=== PATIENT | female | born 1940 | race Caucasian/White ===

== ENCOUNTER → 2017-02-11 | Outpatient (CLI) | payer OTHER, MEDICARE ==
--- NOTE | 2017-02-11 15:19 | MAMMOGRAPHY REPORT ---
BILATERAL DIGITAL SCREENING MAMMOGRAM WITH CAD: 02/11/2017 CLINICAL HISTORY: Routine screening. Patient has no complaints. TECHNIQUE: Current study was also evaluated with a Computer Aided Detection (CAD) system. Bilatera l CC and MLO views were obtained. COMPARISON: Comparison is made to exams dated: 02/11/2016 mammogram, 02/06/2015 mammogram, 01/16/2014 m ammogram, 01/15/2013 mammogram, 01/12/2012 mammogram, and 01/06/2011 mammogram - [facility] enter. BREAST COMPOSITION: There are scattered areas of fibroglandular density in both breasts. FINDINGS: No suspicious masses, calcifications, or areas of architectural distortion are noted in e ither breast. There has been no significant interval change compared to prior exams. Scattered bilat eral benign-appearing calcifications are not significantly changed. IMPRESSION: ACR BI-RADS CATEGORY 2: BENIGN There is no mammographic evidence of malignancy. A 1 year screening mammogram is recommended. The p atient will receive written notification of the results. Approximately 10% of breast cancers are not detected with mammography. A negative mammographic repor t should not delay biopsy if a clinically suggestive mass is present. Coreen Ball M.D. /:02/11/2017 12:37:27 Cheesemaker Helper: Ayah BARAJAS)(Jenna), [facility] letter sent: Normal 1/2 BI-RADS Code: ACR BI-RADS Category 2: Benign
== END | disposition home or self-care (01) ==
LOC: C.MAMM 10:15
PROVIDERS: ATTEND Family Medicine
DX: Z12.31 Encounter for screening mammogram for malignant neoplasm of breast (principal)

== ENCOUNTER → 2018-02-17 | Outpatient (CLI) | payer OTHER, MEDICARE ==
--- NOTE | 2018-02-20 08:09 | MAMMOGRAPHY REPORT ---
BILATERAL DIGITAL SCREENING MAMMOGRAM TOMOSYNTHESIS WITH CAD: 02/17/2018 CLINICAL HISTORY: Routine screening. Patient has no complaints. TECHNIQUE: Breast tomosynthesis in addition to standard 2D mammography was performed. Current study was also evaluated with a Computer Aided Detection (CAD) system. COMPARISON: Comparison is made to exams dated: 02/11/2017 mammogram, 02/11/2016 mammogram, 02/06/2015 ma mmogram, 01/16/2014 mammogram, 01/15/2013 mammogram, and 01/12/2012 mammogram - [facility] nter. BREAST COMPOSITION: There are scattered areas of fibroglandular density in both breasts. FINDINGS: No suspicious masses, calcifications, or areas of architectural distortion are noted in ei ther breast. There has been no significant interval change compared to prior exams. Scattered bilater al benign-appearing calcifications are not significantly changed. IMPRESSION: ACR BI-RADS CATEGORY 2: BENIGN There is no mammographic evidence of malignancy. A 1 year screening mammogram is recommended. The pa tient will receive written notification of the results. Approximately 10% of breast cancers are not detected with mammography. A negative mammographic report should not delay biopsy if a clinically suggestive mass is present. Coreen Ball M.D. /:02/17/2018 15:32:02 Burnt Lime Drawer: Jennifer BARAJAS)(M), [facility] letter sent: Normal 1/2 BI-RADS Code: ACR BI-RADS Category 2: Benign
== END ==
LOC: C.MAMM 14:43
PROVIDERS: ATTEND Family Medicine
DX: Z12.31 Encounter for screening mammogram for malignant neoplasm of breast (principal)

== ENCOUNTER 2023-04-08 19:21 | Inpatient (IN) ==
[2023-04-08] MEDS ORDERED: SODIUM CHLORIDE 0.9% 500 ML IV SCH (19:45)
--- NOTE | 2023-04-08 19:45 | Emergency Department Note ---
Impression & Plan Anaplasmosis, Weakness, Elevated troponin I level ED Provider Note Provider: Daniel Carrillo MD DATE OF SERVICE: 04/08/2023 CHIEF COMPLAINT: Weakness, decreased intake HISTORY OF PRESENT ILLNESS: Patient is a 82-year-old female history of essential tremor, CKD, dyslipidemia presenting here via ambulance from home today reporting over the past 2 weeks been generally ill. [id number] and later arrived with additional history. Patient normally quite independent and ambulatory. 2 weeks ago became ill and very weak and fatigued and sleeping quite a bit. Not getting up and walking well and has slid to the ground several times. Denies significant head trauma or injury from these 2 events. Denies significant pain at this time or abdominal upset. States she is just not very hungry. States her essential tremor seems a bit worse. No fevers reported although she reports some slight cough. Denies significant leg swelling or other recent sick contacts. PAST MEDICAL HISTORY: As noted above MEDICATIONS: Reviewed home medication list and she states she has been taking these SOCIAL HISTORY: Lives at home with PHYSICAL EXAM: GENERAL: alert and oriented in no acute distress on stretcher some resting tremor appreciated Head: normocephalic and atraumatic EYES: No injection, discharge or icterus. PERRL, EOMI. NECK: Trachea midline. ENT: Mucous membranes pink and moist. LUNGS: Airway patent. No retractions. Breath sounds clear HEART: Regular rate and rhythm. No chest wall tenderness ABDOMEN: Soft and non-tender, without guarding or rebound. SKIN: Acyanotic, warm, dry, without rashes EXTREMITIES: Without swelling, tenderness or deformity NEUROLOGICAL: No focal deficits moving all extremities to command but with some essential tremor noted. No aphasia. No facial droop or slurred speech. EK bpm normal sinus rhythm. No PVC or PAC. No acute ST segment elevation or depression with a QTc of 470. Nonspecific anterior lateral T wave changes. CONTINUOUS CARDIAC MONITORING: was ordered and showed a heart rate of 60s-70s bpm in normal sinus rhythm 1 view chest x-ray per my interpretation: No evidence of pneumonia pneumothorax or pulmonary edema. No free air under the diaphragm. Patient's laboratory studies and imaging reviewed. Differential includes Infection, dehydration, metabolic abnormality, hypo/hyperglycemia, electrolyte disturbance, anemia, hypoxia, cardiac sources, neurologic, as well as other pathologies. IMPRESSION/MEDICAL DECISION MAKING: Patient with generalized weakness and decreased appetite over the past 2 weeks. Several slides to the ground but no significant trauma. We will complete a head CT but doubt other significant trauma no believe any other imaging at this time. Basic blood work ordered. COVID test ordered. X-ray ordered as she reports a slight cough but unclear exact etiology of her weakness at this time. Chest x- ray is unremarkable. Decreased appetite is a bit of concern and given some IV fluid hydration here. Here with some slight hypokalemia 3.3. Normal sodium. Creatinine 1.44 with unclear baseline with a known history of CKD 3A may be slightly dehydrated. Given some fluid hydration here. Bilirubin normal. AST and ALT minimally elevated. Troponin is mildly elevated at 38.4 without a clear prior baseline will need monitored and trended but not having active chest pain and no STEMI on EKG. Procalcitonin not significantly elevated normal TSH here. CT of the head. Per radiology is unremarkable for acute abnormality with chronic small vessel changes. Slight leukopenia as well as a slight transaminitis with anaplasmosis smear positive seems consistent with anaplasmosis as primary p d driver of her symptoms. Given doxycycline here for treatment. They do report a history of tick bites earlier this year. Given her weakness and fatigue will require further care here and discussed with the hospitalist. Patient and family updated at bedside. UA questionable. DIAGNOSIS: Anaplasmosis, weakness, elevated troponin DISPOSITION: Hospitalist will evaluate Patient was agreeable with this plan. Past Med/Surg History Social History Smoking Status: Never smoker Second Hand Exposure: No; Do You Dip or Chew Tobacco: No; Hx Alcohol Use: No Hx Substance Use: No Preferred Language: Greek Communication Ability: Effective Assembler Utility Buildings Required: No Beliefs That Will Affect Care: None Current Living Situation: Spouse Current Living Situation Comment: Lives with Other Information That Helps Us Care for You: No Feels Safe at Home: Yes Safety Concerns: Feels Safe At This Time Assistive Devices: Denture - Upper and Glasses Allergies Allergies Allergy/AdvReac Type Severity Reaction Status Date / Time No Known Allergies Allergy Verified 04/08/23 22:37 Home Meds Home Medications Medication Instructions Recorded Confirmed Fish Oil 1,000 mg PO DAILY 04/08/23 04/09/23 PreserVision AREDS-2 PO DAILY 04/08/23 Vitamin D3 25 mcg PO DAILY 04/08/23 04/09/23 atorvastatin 20 mg tablet 20 mg PO DAILY 04/08/23 04/09/23 diazepam 5 mg tablet 5 mg PO TID PRN Tremor(S) 04/08/23 04/09/23 hydrochlorothiazide 25 mg tablet 25 mg PO DAILY 04/08/23 04/09/23 multivitamin 1 tab PO DAILY 04/08/23 04/09/23 nifedipine 90 mg tablet,extended 90 mg PO DAILY 04/08/23 04/09/23 release 24 hr propranolol 120 mg capsule,24 120 mg PO DAILY 04/08/23 04/09/23 hr,extended release aspirin 81 mg capsule,delayed 81 mg PO DAILY 04/09/23 04/09/23 release Results & Data (ED) Vital Signs Vital Signs - 24 hr 04/08/23 19:33 04/08/23 19:37 04/08/23 19:39 Temperature 36.9 C Temperature Source Oral Pulse Rate 71 69 Pulse Rate [Apical] Pulse Rate from SpO2 Sensor Pulse Rhythm Regular Pulse Strength Normal Respiratory Rate 20 Respiratory Effort / Characteristics Non-Labored Spontaneous Respiratory Depth Normal Respiratory Pattern Regular Blood Pressure 109/63 Blood Pressure [Right Arm] Blood Pressure Mean 78 Blood Pressure Mean [Right Arm] Blood Pressure Position Sitting Pulse Oximetry 91 Oxygen Delivery Method Room Air Room Air Sepsis Recent Fever Within 48 Hours No Sepsis New/Unexplained Change in Mental Status N/A Sepsis Action Taken by Nursing No Action Required 04/08/23 19:54 04/08/23 20:24 04/08/23 21:05 Temperature Temperature Source Pulse Rate 68 Pulse Rate [Apical] 68 69 Pulse Rate from SpO2 Sensor Pulse Rhythm Pulse Strength Respiratory Rate 19 19 Respiratory Effort / Characteristics Respiratory Depth Respiratory Pattern Blood Pressure Blood Pressure [Right Arm] 109/63 105/59 L Blood Pressure Mean Blood Pressure Mean [Right Arm] 78 74 Blood Pressure Position Pulse Oximetry 93 95 94 Oxygen Delivery Method Room Air Room Air Room Air Sepsis Recent Fever Within 48 Hours Sepsis New/Unexplained Change in Mental Status Sepsis Action Taken by Nursing 04/08/23 20:30 04/08/23 22:10 04/08/23 23:00 Temperature Temperature Source Pulse Rate 67 155 H 93 H Pulse Rate [Apical] Pulse Rate from SpO2 Sensor 134 H 67 Pulse Rhythm Pulse Strength Respiratory Rate 17 22 29 H Respiratory Effort / Characteristics Respiratory Depth Respiratory Pattern Blood Pressure 115/68 104/57 L 129/63 Blood Pressure [Right Arm] Blood Pressure Mean 83 72 85 Blood Pressure Mean [Right Arm] Blood Pressure Position Pulse Oximetry 90 93 Oxygen Delivery Method Sepsis Recent Fever Within 48 Hours Sepsis New/Unexplained Change in Mental Status Sepsis Action Taken by Nursing Laboratory Data 04/08/23 19:28 Lab Results 04/08/23 04/08/23 04/08/23 Range/Units 19:28 19:28 19:28 WBC 3.74 L (4.8-10.8) K/ul RBC 4.37 (4.20-5.40) M/uL Hgb 12.9 (12.0-16.0) g/dl Hct 36.9 L (37.0-47.0) % MCV 84.4 (80.0-100.0) fL MCH 29.5 (25.0-34.0) pg MCHC 35.0 (32.0-36.0) g/dL RDW Std Deviation 44.1 (36.4-46.3) fL RDW Coeff of Chad 14.2 (11.5-14.5) % Plt Count 120 L (130-400) K/uL MPV 14.4 H (9.4-12.4) fL Immature Gran % (Auto) 0.5 % Neut % (Auto) 62.3 % Lymph % (Auto) 32.9 % [place] % (Auto) 3.5 % Eos % (Auto) 0.0 % Baso % (Auto) 0.8 % Neut # (Auto) 2.33 (1.40-6.50) K/uL Lymph # (Auto) 1.23 (1.2-3.4) K/uL [place] # (Auto) 0.13 (0.11-0.59) K/uL Eos # (Auto) 0.00 (0-0.50) K/uL Baso # (Auto) 0.03 (0-0.2) K/uL Immature Gran # (Auto) 0.02 (0.01-0.20) K/uL Sodium (136-145) mmol/L Potassium (3.5-5.1) mmol/L Chloride (98-107) mmol/L Carbon Dioxide (21-32) mmol/L Anion Gap (3-11) BUN (6-23) mg/dl Creatinine (0.6-1.2) mg/dl Est Cr Clr Drug Dosing ml/min Est GFR ( Amer) ml/min Est GFR (Non-Af Amer) ml/min BUN/Creatinine Ratio (10-20) Glucose (70-99(Fasting)) mg/dl Lactate (0.4-2.0) mmol/L Calcium (8.6-10.3) mg/dl Magnesium (1.7-2.4) mg/dl Total Bilirubin (0.2-1.0) mg/dl AST (13-39) U/L ALT (7-52) U/L Alkaline Phosphatase (34-104) U/L Total Creatine Kinase (26-192) U/L Troponin I High Sens (0-14) pg/ml Total Protein (6.0-8.3) gm/dl Albumin (3.4-5.0) gm/dl Globulin (2.5-4.0) gm/dl Albumin/Globulin Ratio (0.9-2) Procalcitonin 0.40 (0-0.5) ng/ml TSH 0.852 (0.300-4.500) uIu/ml Urine Color Urine Appearance (Clear) Urine pH (4.5-7.5) Ur Specific [place] (1.000-1.030) Urine Protein (Negative) Urine Glucose (UA) (Negative) Urine Ketones (Negative) Urine Blood (Negative) Urine Nitrite (Negative) Urine Bilirubin (Negative) Urine Urobilinogen (Negative) Ur Leukocyte Esterase (Negative) Urine WBC (Auto) (0-5) /hpf Urine RBC (Auto) (0-4) /hpf U Hyaline Cast (Auto) (0-5) /lpf U Epithel Cells (Auto) (0-5) /lpf Urine Bacteria (Auto) (Negative) Ur Renal Epithelial Cell (0-5) /lpf WBC Casts (0) /lpf Urine Mucus (None Prsent) Anaplasma Smear See Comment A SARS-CoV-2, RNA, NAAT (NEGATIVE) 04/08/23 04/08/23 04/08/23 Range/Units 20:22 20:22 21:10 WBC (4.8-10.8) K/ul RBC (4.20-5.40) M/uL Hgb (12.0-16.0) g/dl Hct (37.0-47.0) % MCV (80.0-100.0) fL MCH (25.0-34.0) pg MCHC (32.0-36.0) g/dL RDW Std Deviation (36.4-46.3) fL RDW Coeff of Chad (11.5-14.5) % Plt Count (130-400) K/uL MPV (9.4-12.4) fL Immature Gran % (Auto) % Neut % (Auto) % Lymph % (Auto) % [place] % (Auto) % Eos % (Auto) % Baso % (Auto) % Neut # (Auto) (1.40-6.50) K/uL Lymph # (Auto) (1.2-3.4) K/uL [place] # (Auto) (0.11-0.59) K/uL Eos # (Auto) (0-0.50) K/uL Baso # (Auto) (0-0.2) K/uL Immature Gran # (Auto) (0.01-0.20) K/uL Sodium 137 (136-145) mmol/L Potassium 3.3 L (3.5-5.1) mmol/L Chloride 98 (98-107) mmol/L Carbon Dioxide 31 (21-32) mmol/L Anion Gap 8 (3-11) BUN 35 H (6-23) mg/dl Creatinine 1.44 H (0.6-1.2) mg/dl Est Cr Clr Drug Dosing 29.3 ml/min Est GFR ( Amer) 38.6 ml/min Est GFR (Non-Af Amer) 33.3 ml/min BUN/Creatinine Ratio 24.3 H (10-20) Glucose 107 H (70-99(Fasting)) mg/dl Lactate 1.4 (0.4-2.0) mmol/L Calcium 8.8 (8.6-10.3) mg/dl Magnesium 2.3 (1.7-2.4) mg/dl Total Bilirubin 0.8 (0.2-1.0) mg/dl AST 66 H (13-39) U/L ALT 53 H (7-52) U/L Alkaline Phosphatase 96 (34-104) U/L Total Creatine Kinase 101 (26-192) U/L Troponin I High Sens 38.4 H (0-14) pg/ml Total Protein 7.0 (6.0-8.3) gm/dl Albumin 3.0 L (3.4-5.0) gm/dl Globulin 4.0 (2.5-4.0) gm/dl Albumin/Globulin Ratio 0.8 L (0.9-2) Procalcitonin (0-0.5) ng/ml TSH (0.300-4.500) uIu/ml Urine Color Urine Appearance (Clear) Urine pH (4.5-7.5) Ur Specific [place] (1.000-1.030) Urine Protein (Negative) Urine Glucose (UA) (Negative) Urine Ketones (Negative) Urine Blood (Negative) Urine Nitrite (Negative) Urine Bilirubin (Negative) Urine Urobilinogen (Negative) Ur Leukocyte Esterase (Negative) Urine WBC (Auto) (0-5) /hpf Urine RBC (Auto) (0-4) /hpf U Hyaline Cast (Auto) (0-5) /lpf U Epithel Cells (Auto) (0-5) /lpf Urine Bacteria (Auto) (Negative) Ur Renal Epithelial Cell (0-5) /lpf WBC Casts (0) /lpf Urine Mucus (None Prsent) Anaplasma Smear SARS-CoV-2, RNA, NAAT NEGATIVE (NEGATIVE) 04/08/23 Range/Units 22:04 WBC (4.8-10.8) K/ul RBC (4.20-5.40) M/uL Hgb (12.0-16.0) g/dl Hct (37.0-47.0) % MCV (80.0-100.0) fL MCH (25.0-34.0) pg MCHC (32.0-36.0) g/dL RDW Std Deviation (36.4-46.3) fL RDW Coeff of Chad (11.5-14.5) % Plt Count (130-400) K/uL MPV (9.4-12.4) fL Immature Gran % (Auto) % Neut % (Auto) % Lymph % (Auto) % [place] % (Auto) % Eos % (Auto) % Baso % (Auto) % Neut # (Auto) (1.40-6.50) K/uL Lymph # (Auto) (1.2-3.4) K/uL [place] # (Auto) (0.11-0.59) K/uL Eos # (Auto) (0-0.50) K/uL Baso # (Auto) (0-0.2) K/uL Immature Gran # (Auto) (0.01-0.20) K/uL Sodium (136-145) mmol/L Potassium (3.5-5.1) mmol/L Chloride (98-107) mmol/L Carbon Dioxide (21-32) mmol/L Anion Gap (3-11) BUN (6-23) mg/dl Creatinine (0.6-1.2) mg/dl Est Cr Clr Drug Dosing ml/min Est GFR ( Amer) ml/min Est GFR (Non-Af Amer) ml/min BUN/Creatinine Ratio (10-20) Glucose (70-99(Fasting)) mg/dl Lactate (0.4-2.0) mmol/L Calcium (8.6-10.3) mg/dl Magnesium (1.7-2.4) mg/dl Total Bilirubin (0.2-1.0) mg/dl AST (13-39) U/L ALT (7-52) U/L Alkaline Phosphatase (34-104) U/L Total Creatine Kinase (26-192) U/L Troponin I High Sens (0-14) pg/ml Total Protein (6.0-8.3) gm/dl Albumin (3.4-5.0) gm/dl Globulin (2.5-4.0) gm/dl Albumin/Globulin Ratio (0.9-2) Procalcitonin (0-0.5) ng/ml TSH (0.300-4.500) uIu/ml Urine Color Dark Yellow Urine Appearance Cloudy A (Clear) Urine pH 6.0 (4.5-7.5) Ur Specific [place] 1.019 (1.000-1.030) Urine Protein 1+ H (Negative) Urine Glucose (UA) Negative (Negative) Urine Ketones Negative (Negative) Urine Blood Negative (Negative) Urine Nitrite Negative (Negative) Urine Bilirubin Negative (Negative) Urine Urobilinogen Negative (Negative) Ur Leukocyte Esterase 1+ H (Negative) Urine WBC (Auto) 10-30 H (0-5) /hpf Urine RBC (Auto) 5-10 H (0-4) /hpf U Hyaline Cast (Auto) 10-30 H (0-5) /lpf U Epithel Cells (Auto) >30 H (0-5) /lpf Urine Bacteria (Auto) Negative (Negative) Ur Renal Epithelial Cell 0-5 (0-5) /lpf WBC Casts 1-5 H (0) /lpf Urine Mucus Present A (None Prsent) Anaplasma Smear SARS-CoV-2, RNA, NAAT (NEGATIVE) Administered Medications Diazepam (Diazepam 5 Mg Tablet) 5 mg PO TID PRN PRN Reason: Tremor(S) Stop: 05/09/23 11:04 Last Admin: 04/09/23 12:25 Dose: 5 mg Documented By: ISABEL Heparin Sodium (Porcine) (Heparin Sod 5,000 Unit/0.5 Ml Vial) 5,000 units SQ Q12 BEKAH Stop: 05/09/23 08:59 Last Admin: 04/09/23 12:15 Dose: 5,000 units Documented By: ISABEL Doxycycline Hyclate 100 mg/ (Dextrose) 110 mls @ 50 mls/hr IV Q12H BEKAH Stop: 04/23/23 00:59 Last Admin: 04/09/23 12:25 Dose: 50 mls/hr Documented By: Infusion: 04/09/23 03:13 Dose: 0 mls/hr Documented By: Admin: 04/09/23 01:01 Dose: 50 mls/hr Documented By: ANGI Dextrose/Sodium Chloride (D5w And Nss) 1,000 mls @ 100 mls/hr IV .Q10H BEKAH Stop: 05/09/23 00:40 Last Admin: 04/09/23 12:15 Dose: 100 mls/hr Documented By: Infusion: 04/09/23 11:01 Dose: 100 mls/hr Documented By: Admin: 04/09/23 01:01 Dose: 100 mls/hr Documented By: ANGI Propranolol HCl (Propranolol Hcl 60 Mg [place]) 120 mg PO QAM BEKAH Stop: 05/09/23 09:29 Last Admin: 04/09/23 12:15 Dose: 120 mg Documented By: ISABEL Discontinued Medications Doxycycline Hyclate (Doxycycline Hyclate 100 Mg Cap) 100 mg PO NOW STA Stop: 04/08/23 22:20 Last Admin: 04/08/23 23:50 Dose: Not Given Documented By: BS Sodium Chloride (Nss) 500 mls @ 999 mls/hr IV .Q31M BEKAH Stop: 04/08/23 20:15 Last Infusion: 04/08/23 20:29 Dose: 0 mls/hr Documented By: Admin: 04/08/23 19:57 Dose: 999 mls/hr Documented By: Lactated Ringer's (Lr) 500 mls @ 999 mls/hr IV .Q31M ONE Stop: 04/08/23 22:14 Last Infusion: 04/08/23 23:18 Dose: 0 mls/hr Documented By: Admin: 04/08/23 22:43 Dose: 999 mls/hr Documented By: Ceftriaxone Sodium (Rocephin) 2,000 mg in 70 mls @ 140 mls/hr IV NOW STA Stop: 04/08/23 23:39 Last Infusion: 04/09/23 00:22 Dose: 0 mls/hr Documented By: Admin: 04/08/23 23:50 Dose: 140 mls/hr Documented By: NASIM Potassium Chloride (K Julien / Wtr) 10 meq in 100 mls @ 100 mls/hr IV Q1H BEKAH Stop: 04/09/23 02:44 Last Infusion: 04/09/23 03:27 Dose: 0 mls/hr Documented By: Admin: 04/09/23 02:21 Dose: 100 mls/hr Documented By: Infusion: 04/09/23 02:01 Dose: 100 mls/hr Documented By: Admin: 04/09/23 01:01 Dose: 100 mls/hr Documented By: ANGI Imaging Data Radiologist's Impression: Chest X-Ray 04/08/23 19:42 XR chest 1V portable CLINICAL HISTORY: weakness COMPARISON STUDY: No previous studies for comparison. FINDINGS: Lung volumes are at the lower limits of normal. Lungs are clear. There is no pneumothorax or pleural effusion. Cardiac size is normal. Mediastinal contours are normal. There is no evidence for pulmonary edema. IMPRESSION: No acute cardiopulmonary findings. ACT 112: Negative or not required by law. Electronically signed by: Dashawn Milligan M.D. 04/09/2023 8:08 AM Discharge Plan Visit Data Chief Complaint: Weakness Stated Complaint: WEAKNESS X2 WEEKS ED Provider: Daniel Carrillo Discharge Problem: Anaplasmosis, Weakness, Elevated troponin I level Patient Disposition: Admitted As Inpatient Discharge Instructions Interventions: ED Discharge Assessment Last Done: 04/09/23 00:13
[2023-04-08 20:57] LABS: Albumin Globulin Ratio 0.8 (0.9-2); BUN Creatinine Ratio 24.3 (10-20); Bilirubin,Total 0.8 mg/dl (0.2-1.0); Calcium 8.8 mg/dl (8.6-10.3); Creatinine Clr Calc Pharmacy 29.3 ml/min; Est GFR (African American) 38.6 ml/min; Est GFR (Non-African American) 33.3 ml/min; Magnesium 2.3 mg/dl (1.7-2.4); Potassium 3.3 mmol/L (3.5-5.1)
[2023-04-08 21:03] LABS: Troponin I High Sensitivity 38.4 pg/ml (0-14)
--- NOTE | 2023-04-08 21:20 | CT Scan Report ---
Exam(s): CT HEAD Without Contrast EXAM: CT Head Without Intravenous Contrast CLINICAL HISTORY: Reason for exam: fall. TECHNIQUE: Axial computed tomography images of the head/brain without intravenous contrast. CTDI is 36.55 mGy and DLP is 547.75 mGy-cm. Automated exposure control was utilized for the study. A dose lowering technique was utilized adhering to the principles of ALARA. COMPARISON: None FINDINGS: Brain: No acute infarct or hemorrhage identified. No extra-axial fluid collection. No mass effect or midline shift. Scattered areas of hypoattenuation in the supratentorial white matter likely represent chronic small vessel ischemic changes. 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 Ventricles and sulci: Prominence of the ventricles and sulci is likely secondary to cerebral volume loss. Bones: Normal. No bony lesion or acute fracture. Subcutaneous tissues: Normal. Sinuses: Small polyp versus mucous retention cyst in the right maxillary sinus. Mild mucosal thickening in the ethmoid air cells. Mastoid air cells: Normal. Orbits: Bilateral lens implants. Other: Atherosclerotic calcifications in the intracranial vasculature. IMPRESSION: 1. No acute intracranial abnormality. 2. Chronic small vessel ischemic changes and cerebral volume loss. Electronically signed by: Aryan Vidal M.D. 04/08/23 21:20 PM
[2023-04-08] MEDS ORDERED: LACTATED RINGER'S 500 ML IV ONE (21:44)
[2023-04-08 22:19] LABS: Hematocrit (blood only) 36.9 % (37.0-47.0); Hemoglobin 12.9 g/dl (12.0-16.0); Mean Corpuscular Hemoglobin 29.5 pg (25.0-34.0); Mean Corpuscular Volume 84.4 fL (80.0-100.0); Mean Platelet Volume 14.4 fL (9.4-12.4); Platelet Count 120 K/uL (130-400); RDW Coefficient of Variation 14.2 % (11.5-14.5); RDW Standard Deviation 44.1 fL (36.4-46.3); Red Blood Count 4.37 M/uL (4.20-5.40); White Blood Count 3.74 K/ul (4.8-10.8)
[2023-04-08] MEDS ORDERED: DOXYCYCLINE HYCLATE 100 MG CAP PO STA (22:19)
[2023-04-08 22:21] LABS: Basophils # (auto) 0.03 K/uL (0-0.2); Basophils % (auto) 0.8 %; Immature Granulocytes # (auto) 0.02 K/uL (0.01-0.20); Immature Granulocytes % (auto) 0.5 %; Lymphocytes # (auto) 1.23 K/uL (1.2-3.4); Lymphocytes % (auto) 32.9 %; Monocytes # (auto) 0.13 K/uL (0.11-0.59); Monocytes % (auto) 3.5 %; Neutrophils # (auto) 2.33 K/uL (1.40-6.50); Neutrophils % (auto) 62.3 %
[2023-04-08 22:28] LABS: Appearance Urine Cloudy (Clear); Bacteria Urine Automated Negative (Negative); Bilirubin Urine Negative (Negative); Blood Urine Negative (Negative); Color Urine Dark Yellow; Epithelial Cell Urine Auto >30 /lpf (0-5); Glucose Urine UA Negative (Negative); Ketones Urine Negative (Negative); Leukocyte Esterase Urine 1+ (Negative); Nitrite Urine Negative (Negative); Protein Urine 1+ (Negative); Specific Gravity Urine 1.019 (1.000-1.030); Urobilinogen Urine Negative (Negative)
[2023-04-08 22:50] LABS: Mucus Urine Present (None Prsent); Renal Epithelial Cells Urine 0-5 /lpf (0-5)
[2023-04-08] MEDS ORDERED: cefTRIAXone SODIUM 2,000 MG/70 ML BAG IV STA (23:10)
[2023-04-09] MEDS ORDERED: ONDANSETRON INJ 2 MG/ML 2 ML VIAL IV PRN (00:41)
[2023-04-09] MEDS ORDERED: hydrALAZINE HCL 20 MG/ML VIAL IV PRN (00:41)
[2023-04-09] MEDS ORDERED: NITROGLYCERIN SL 0.4 MG/TAB TAB SL PRN (00:41)
[2023-04-09] MEDS: POTASSIUM CHLORIDE / WTR 10 MEQ/100 ML PLCT IV SCH ×2 (01:01→02:21)
[2023-04-09] MEDS: DOXYCYCLINE HYCLATE 100 MG in DEXTROSE 5% 100 ML IV SCH ×2 (01:01→12:25)
[2023-04-09] MEDS: D5W AND NSS 1,000 ML IV SCH ×2 (01:01→12:15)
--- NOTE | 2023-04-09 01:19 | History and Physical Report ---
DATE OF ADMISSION: 04/08/2023. CHIEF COMPLAINT: Weakness. HISTORY OF PRESENT ILLNESS: This is an 82-year-old female with past medical history significant for hypertension, hyperlipidemia, chronic kidney disease stage III, essential tremor, presents with weakness. The patient has very bad tremors. She has difficulty speaking with her tremors. Today she says she was feeling weak slid down from the chair and she was having also shaking chills, the reason she came to the ER. She says she had a tick bite more than 2 weeks ago and anaplasmosis screen came back positive. The patient denies any fevers. No cough. The patient says she can eat okay, but looks like she was not able to swallow comfortably water in the ER. Denies any headache. Vision is okay. No runny nose, no chest pain, no shortness of breath, no nausea, no abdominal pain. Normal bowel and bladder movements. She says she ambulates okay at home Currently, hemodynamics are okay. ALLERGIES: No known drug allergies. PAST MEDICAL HISTORY: As mentioned above. PAST SURGICAL HISTORY: Colonoscopy, dilatation and curettage, hysteroscopy with biopsy and polypectomy, internal fixation of right ankle fracture, cataract surgeries. MEDICATIONS: As per [facility], the patient is on hydrochlorothiazide 25 mg p.o. daily, propranolol ER 120 mg p.o. daily, diazepam 5 mg p.o. t.i.d. p.r.n. for tremors, atorvastatin 20 mg p.o. daily, nifedipine ER 90 mg 1 tablet p.o. daily, aspirin 81 mg p.o. daily. FAMILY HISTORY: Significant for mother had cervical arthritis and hypertension. Father had at age 48 with DC. Brother has hypertension. Paternal grandfather of DC. Maternal grandmother of CVA. SOCIAL HISTORY: , no smoking, no alcohol, no drug use. REVIEW OF SYSTEMS: As per HPI. Rest of the review of systems is negative. PHYSICAL EXAMINATION: GENERAL: The patient is old and frail, not in acute distress. VITAL SIGNS: Temperature 36.9, pulse 93, respiratory rate 22, blood pressure 129/63, oxygen 93% on room air. HEENT: Pupils equal, round and reactive to light. Oral mucosa dry. NECK: No JVD, no neck masses. CARDIOVASCULAR: S1 and S2 heard. Regular rate and rhythm. No murmur, no gallop. RESPIRATORY SYSTEM: Normal AP diameter. No accessory muscle use. No wheezing, no crackles. ABDOMEN: Soft, bowel sounds present, nontender, no distention. CENTRAL NERVOUS SYSTEM: Alert and oriented. Difficult to speak from tremors, but insight is good. Obeys simple commands. Moves extremities. EXTREMITIES: No edema, no erythema seen. LABORATORY DATA: WBC 3.7, hemoglobin 12.9, hematocrit 36.9, platelets 120. Sodium 137, potassium 3.3, chloride 98, CO2 of 31, BUN 35, creatinine 1.4, serum glucose 107, lactate 1.4, calcium 8.8, magnesium 2.3, total bilirubin 0.8, AST 66, ALT 53, alkaline phosphatase 96. Troponin I high sensitivity 38.4. Total creatine kinase 101. Procalcitonin 0.4. TSH 0.8. Urinalysis positive for leukocyte esterase. Anaphylaxis screen positive. SARS-COVID rapid test negative. IMAGING DATA: Chest x-ray, no acute findings. CT of the head, no acute findings. EKG: Normal sinus rhythm at a rate of 70, nonspecific ST abnormalities, no acute ST changes seen. ASSESSMENT AND PLAN: This is an 82-year-old female who presents with weakness. 1. Weakness. The patient had a tick bite more than 2 weeks. 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 Started on doxycycline. Follow labs and response. 2. possible urinary tract infection. We will follow the cultures. Empirically on Rocephin. Monitor the response. 3. Mild elevation of troponin Mostly demand ischemia Follow serial enzymes. 4. Essential tremors. The patient was having severe bad tremors. Looks like she could not even drink water, she coughed up. We will get speech evaluation. Until then, we will hold the p.o. medications. We will hold her propranolol for now. We will change diazepam to IM p.r.n. and monitor. 5. History of hypertension. Holding p.o. medication of hydrochlorothiazide and nifedipine and Propranolol. IV hydralazine p.r.n. 6. History of hyperlipidemia. Holding atorvastatin.Restart after speech evaluation. 7.JOSE on Chronic kidney disease stage III. Baseline creatinine 1 to 1.2, today 1.4. We will follow the repeat labs. Getting fluids. 8. Deep venous thrombosis prophylaxis. We will place her on heparin subcutaneous. Monitor the platelets. DISPOSITION: Closely monitor in the med tele. PT/OT prior to discharge. Social service to help with discharge planning. Level 1 full code. Job ID: [id number] [facility]
[2023-04-09 05:59] LABS: Hematocrit (blood only) 32.4 % (37.0-47.0); Hemoglobin 11.4 g/dl (12.0-16.0); Mean Corpuscular Hemoglobin 29.8 pg (25.0-34.0); Mean Corpuscular Hgb Conc 35.2 g/dL (32.0-36.0); Mean Corpuscular Volume 84.6 fL (80.0-100.0); Mean Platelet Volume 13.5 fL (9.4-12.4); Platelet Count 115 K/uL (130-400); RDW Coefficient of Variation 14.5 % (11.5-14.5); RDW Standard Deviation 44.9 fL (36.4-46.3); Red Blood Count 3.83 M/uL (4.20-5.40); White Blood Count 3.97 K/ul (4.8-10.8)
[2023-04-09 06:02] LABS: BUN Creatinine Ratio 24.1 (10-20); Calcium 7.9 mg/dl (8.6-10.3); Creatinine Clr Calc Pharmacy 34.4 ml/min; Est GFR (African American) 50.1 ml/min; Est GFR (Non-African American) 43.2 ml/min; Magnesium 1.9 mg/dl (1.7-2.4); Potassium 3.4 mmol/L (3.5-5.1)
[2023-04-09 06:10] LABS: Troponin I High Sensitivity 32.6 pg/ml (0-14)
[2023-04-09 07:15] LABS: ALC (manual) 0.36 K/uL (1.2-3.4); ANC (manual) 3.33 K/uL (1.4-6.5); Lymphocytes # (manual) 0.36 K/uL (1.2-3.4); Lymphocytes % (manual) 9 %; Monocytes # (manual) 0.32 K/uL (0.11-0.59); Monocytes % (manual) 8 %; Neutrophils # (manual) 3.33 K/uL (1.40-6.50); Neutrophils % (manual) 84 %; Toxic Vacuolation 1+
--- NOTE | 2023-04-09 08:09 | XRay Report ---
XR chest 1V portable CLINICAL HISTORY: weakness COMPARISON STUDY: No previous studies for comparison. FINDINGS: Lung volumes are at the lower limits of normal. Lungs are clear. There is no pneumothorax o r pleural effusion. Cardiac size is normal. Mediastinal contours are normal. There is no evidence for pulmonary edema. IMPRESSION: No acute cardiopulmonary findings. ACT 112: Negative or not required by law. Electronically signed by: Dashawn Milligan M.D. 04/09/2023 8:08 AM
[2023-04-09] MEDS: PROPRANOLOL HCL 60 MG LA CAP PO SCH (12:15)
[2023-04-09] MEDS: HEPARIN SOD 5,000 UNIT/0.5 ML VIAL SQ SCH ×2 (12:15→22:22)
[2023-04-09] MEDS: diazePAM 5 MG TABLET PO PRN (12:25)
--- NOTE | 2023-04-09 12:56 | Hospitalist Progress Note ---
Date of Service April 09, 2023 Assessment & Plan (1) Weakness: (2) Anaplasmosis: Plan: Patient is a 82-year-old female with past medical history of essential tremors, hypertension, hyperlipidemia which presents with generalized weakness. Had tick bite 2 weeks ago. Anaplasmosis screen positive Labs reviewed; has leukopenia, mild thrombocytopenia and mild transaminitis Confirmatory test awaited. Started on doxycycline; will provide 10-day course. (3) UTI (urinary tract infection): Plan: Urinalysis suggestive of infection Currently on Rocephin. We will follow-up on urine culture results (4) Elevated troponin I level: Plan: Mildly elevated high-sensitivity troponin; 38 on admission and down trended. EKG personally reviewed; normal sinus rhythm with nonspecific ST and T wave changes. Likely due to demand ischemia Plan Chronic conditions; Essential tremors. Significant tremors present. [employer] eval done; diet ordered. Home propranolol and Valium ordered. History of hypertension. Hold antihypertensive as blood pressure is on lower side History of hyperlipidemia. Resume Lipitor JOSE on Chronic kidney disease stage III. Creatinine down trended with IV hydration. Avoid nephrotoxic agent. Deep venous thrombosis prophylaxis. We will place her on heparin subcutaneous. Monitor the platelets. Full code DVT prophylaxis heparin Time spent evaluating patient, direct bedside care, chart review, placing orders, interpretation of diagnostic studies, discussion with patient as well as other required patient management activities is 60 minutes Please note the above document was generated using voice recognition software. It may contain grammatical, syntax or spelling errors. Any formal questions or concerns about the content, text or information contained within the body of this dictation should be directly addressed to the provider for clarification Admission and Anticipated Discharge Date Admission Date: April 08, 2023 Subjective Patient seen and examined at bedside. She is sitting up on the chair at the side of the bed; not in any distress. Reports she has been feeling better since admission. Review of Systems Review of Systems: All systems reviewed & are unremarkable except as noted in Subjective Physical Exam Physical Exam: Constitutional: Awake, alert orient x3; has tremors Respiratory: normal respiratory effort, lungs clear to auscultation, no wheeze, rales, rhonchi. Normal insp/exp effort, no accessory muscle use Cardiovascular: RRR, no murmur, no edema Vessels: no JVD or carotid bruit Chest: normal inspection of chest Abdomen: normal bowel sounds, soft, nontender, no hepatosplenomegaly Musculoskeletal: no cyanosis or clubbing, extremities motor strength 5/5 Skin: no rashes, warm and dry normal turgor Neurologic: PERRL, EOMI, accommodation nl, no face palsy, no dysarthria CN's II- XI intact bilaterally and moves all extremities Psychiatric: A+Ox3, euthymic affect Results & Data Results & Data Vital Signs (Past 12 Hours) Vital Signs Temp Pulse Pulse Resp BP BP Pulse Ox 04/09/23 11:58 36.7 C 99 H 18 108/68 97 04/09/23 07:59 37.1 C 71 20 92/48 L 87 L 04/09/23 02:42 37.5 C 65 18 108/62 91 04/09/23 01:30 65 04/09/23 01:12 04/09/23 01:12 37.3 C 64 18 118/65 93 O2 Del Method O2 Flow Rate 04/09/23 11:58 Nasal Cannula 04/09/23 07:59 Nasal Cannula 2 04/09/23 02:42 Nasal Cannula 2 04/09/23 01:30 04/09/23 01:12 Nasal Cannula 2 04/09/23 01:12 Nasal Cannula 2 Laboratory Results Laboratory Results WBC 3.97 K/ul (4.8-10.8) L 04/09/23 05:25 RBC 3.83 M/uL (4.20-5.40) L 04/09/23 05:25 Hgb 11.4 g/dl (12.0-16.0) L 04/09/23 05:25 Hct 32.4 % (37.0-47.0) L 04/09/23 05:25 MCV 84.6 fL (80.0-100.0) 04/09/23 05:25 MCH 29.8 pg (25.0-34.0) 04/09/23 05:25 MCHC 35.2 g/dL (32.0-36.0) 04/09/23 05:25 RDW Std Deviation 44.9 fL (36.4-46.3) 04/09/23 05:25 RDW Coeff of Chad 14.5 % (11.5-14.5) 04/09/23 05:25 Plt Count 115 K/uL (130-400) L 04/09/23 05:25 MPV 13.5 fL (9.4-12.4) H 04/09/23 05:25 Immature Gran % (Auto) 0.5 % 04/08/23 19:28 Neut % (Auto) 62.3 % 04/08/23 19:28 Lymph % (Auto) 32.9 % 04/08/23 19:28 [place] % (Auto) 3.5 % 04/08/23 19:28 Eos % (Auto) 0.0 % 04/08/23 19:28 Baso % (Auto) 0.8 % 04/08/23 19:28 Neut # (Auto) 2.33 K/uL (1.40-6.50) 04/08/23 19:28 Lymph # (Auto) 1.23 K/uL (1.2-3.4) 04/08/23 19:28 [place] # (Auto) 0.13 K/uL (0.11-0.59) 04/08/23 19:28 Eos # (Auto) 0.00 K/uL (0-0.50) 04/08/23 19:28 Baso # (Auto) 0.03 K/uL (0-0.2) 04/08/23 19:28 Immature Gran # (Auto) 0.02 K/uL (0.01-0.20) 04/08/23 19:28 Neutrophils % (Manual) 84 % 04/09/23 05:25 Lymphocytes % (Manual) 9 % 04/09/23 05:25 Monocytes % (Manual) 8 % 04/09/23 05:25 Neutrophils # (Manual) 3.33 K/uL (1.40-6.50) 04/09/23 05:25 Total Absolute Neuts 3.33 K/uL (1.4-6.5) 04/09/23 05:25 Lymphocytes # (Manual) 0.36 K/uL (1.2-3.4) L 04/09/23 05:25 Total Abs Lymphocytes 0.36 K/uL (1.2-3.4) L 04/09/23 05:25 Monocytes # (Manual) 0.32 K/uL (0.11-0.59) 04/09/23 05:25 Toxic Vacuolation 1+ 04/09/23 05:25 Sodium 136 mmol/L (136-145) 04/09/23 05:25 Potassium 3.4 mmol/L (3.5-5.1) L 04/09/23 05:25 Chloride 102 mmol/L (98-107) 04/09/23 05:25 Carbon Dioxide 28 mmol/L (21-32) 04/09/23 05:25 Anion Gap 6 (3-11) 04/09/23 05:25 BUN 28 mg/dl (6-23) H 04/09/23 05:25 Creatinine 1.16 mg/dl (0.6-1.2) 04/09/23 05:25 Est Cr Clr Drug Dosing 34.4 ml/min 04/09/23 05:25 Est GFR ( Amer) 50.1 ml/min 04/09/23 05:25 Est GFR (Non-Af Amer) 43.2 ml/min 04/09/23 05:25 BUN/Creatinine Ratio 24.1 (10-20) H 04/09/23 05:25 Glucose 131 mg/dl (70-99(Fasting)) H 04/09/23 05:25 Lactate 1.4 mmol/L (0.4-2.0) 04/08/23 20:22 Calcium 7.9 mg/dl (8.6-10.3) L 04/09/23 05:25 Magnesium 1.9 mg/dl (1.7-2.4) 04/09/23 05:25 Total Bilirubin 0.8 mg/dl (0.2-1.0) 04/08/23 20:22 AST 66 U/L (13-39) H 04/08/23 20:22 ALT 53 U/L (7-52) H 04/08/23 20:22 Alkaline Phosphatase 96 U/L (34-104) 04/08/23 20:22 Total Creatine Kinase 101 U/L (26-192) 04/08/23 20:22 Troponin I High Sens 28.2 pg/ml (0-14) H 04/09/23 10:58 Total Protein 7.0 gm/dl (6.0-8.3) 04/08/23 20:22 Albumin 3.0 gm/dl (3.4-5.0) L 04/08/23 20:22 Globulin 4.0 gm/dl (2.5-4.0) 04/08/23 20: Albumin/Globulin Ratio 0.8 (0.9-2) L 04/08/23 20:22 Procalcitonin 0.40 ng/ml (0-0.5) 04/08/23 19:28 TSH 0.852 uIu/ml (0.300-4.500) 04/08/23 19:28 Urine Color Dark Yellow 04/08/23 22:04 Urine Appearance Cloudy (Clear) A 04/08/23 22:04 Urine pH 6.0 (4.5-7.5) 04/08/23 22:04 Ur Specific [place] 1.019 (1.000-1.030) 04/08/23 22:04 Urine Protein 1+ (Negative) H 04/08/23 22:04 Urine Glucose (UA) Negative (Negative) 04/08/23 22:04 Urine Ketones Negative (Negative) 04/08/23 22:04 Urine Blood Negative (Negative) 04/08/23 22:04 Urine Nitrite Negative (Negative) 04/08/23 22:04 Urine Bilirubin Negative (Negative) 04/08/23 22:04 Urine Urobilinogen Negative (Negative) 04/08/23 22:04 Ur Leukocyte Esterase 1+ (Negative) H 04/08/23 22:04 Urine WBC (Auto) 10-30 /hpf (0-5) H 04/08/23 22:04 Urine RBC (Auto) 5-10 /hpf (0-4) H 04/08/23 22:04 U Hyaline Cast (Auto) 10-30 /lpf (0-5) H 04/08/23 22:04 U Epithel Cells (Auto) >30 /lpf (0-5) H 04/08/23 22:04 Urine Bacteria (Auto) Negative (Negative) 04/08/23 22:04 Ur Renal Epithelial Cell 0-5 /lpf (0-5) 04/08/23 22:04 WBC Casts 1-5 /lpf (0) H 04/08/23 22:04 Urine Mucus Present (None Prsent) A 04/08/23 22:04 Anaplasma Smear See Comment A 04/08/23 19:28 SARS-CoV-2, RNA, NAAT NEGATIVE (NEGATIVE) 04/08/23 21:[address] 04/08/23 19:37 Exam(s): CT HEAD Without Contrast EXAM: CT Head Without Intravenous Contrast CLINICAL HISTORY: Reason for exam: fall. TECHNIQUE: Axial computed tomography images of the head/brain without intravenous contrast. CTDI is 36.55 mGy and DLP is 547.75 mGy-cm. Automated exposure control was utilized for the study. A dose lowering technique was utilized adhering to the principles of ALARA. COMPARISON: None FINDINGS: Brain: No acute infarct or hemorrhage identified. No extra-axial fluid collection. No mass effect or midline shift. Scattered areas of hypoattenuation in the supratentorial white matter likely represent chronic small vessel ischemic changes. 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 Ventricles and sulci: Prominence of the ventricles and sulci is likely secondary to cerebral volume loss. Bones: Normal. No bony lesion or acute fracture. Subcutaneous tissues: Normal. Sinuses: Small polyp versus mucous retention cyst in the right maxillary sinus. Mild mucosal thickening in the ethmoid air cells. Mastoid air cells: Normal. Orbits: Bilateral lens implants. Other: Atherosclerotic calcifications in the intracranial vasculature. IMPRESSION: 1. No acute intracranial abnormality. 2. Chronic small vessel ischemic changes and cerebral volume loss. Electronically signed by: Aryan Vidal M.D. 04/08/23 21:20 PM Chest X-Ray 04/08/23 19:42 XR chest 1V portable CLINICAL HISTORY: weakness COMPARISON STUDY: No previous studies for comparison. FINDINGS: Lung volumes are at the lower limits of normal. Lungs are clear. There is no pneumothorax or pleural effusion. Cardiac size is normal. Mediastinal contours are normal. There is no evidence for pulmonary edema. IMPRESSION: No acute cardiopulmonary findings. ACT 112: Negative or not required by law. Electronically signed by: Dashawn Milligan M.D. 04/09/2023 8:08 AM
[2023-04-09] MEDS: cefTRIAXone SODIUM 2,000 MG in DEXTROSE 5% 50 ML IV SCH (23:28)
[2023-04-10] MEDS: DOXYCYCLINE HYCLATE 100 MG in DEXTROSE 5% 100 ML IV SCH ×2 (00:17→12:26)
[2023-04-10] MEDS: D5W AND NSS 1,000 ML IV SCH ×3 (02:19→23:57)
--- NOTE | 2023-04-10 06:52 | Electrocardiogram Report ---
Test Reason : Blood Pressure : / mmHG Vent. Rate : 070 BPM Atrial Rate : 070 BPM P-R Int : 174 ms QRS Dur : 084 ms QT Int : 436 ms P-R-T Axes : 079 000 -32 degrees QTc Int : 470 ms Normal sinus rhythm Nonspecific ST and T wave abnormality Abnormal ECG When compared with ECG of 02-DEC-1998 17:08, Nonspecific T wave abnormality now evident in Inferior leads Nonspecific T wave abnormality now evident in Anterolateral leads QT has lengthened Confirmed by Srini Escamilla ([id number]) on 04/10/2023 6:51:47 AM Referred By: REFERRED SELF Confirmed By:Srini Escamilla
[2023-04-10] MEDS: HEPARIN SOD 5,000 UNIT/0.5 ML VIAL SQ SCH ×2 (07:42→20:39)
[2023-04-10] MEDS: ATORVASTATIN 20 MG TAB PO SCH (07:42)
[2023-04-10] MEDS: OMEGA-3 (PURIFIED FISH OIL) 1 GM CAP PO SCH (07:42)
[2023-04-10] MEDS: ASPIRIN 81 MG ECTAB PO SCH (07:42)
[2023-04-10] MEDS: CHOLECALCIFEROL 1,000 UNITS 25 MCG TAB PO SCH (07:42)
[2023-04-10] MEDS: PROPRANOLOL HCL 60 MG LA CAP PO SCH (07:42)
--- NOTE | 2023-04-10 11:22 | Hospitalist Progress Note ---
Date of Service April 10, 2023 Assessment & Plan (1) Weakness: (2) Anaplasmosis: Plan: Patient is a 82-year-old female with past medical history of essential tremors, hypertension, hyperlipidemia which presents with generalized weakness. Had tick bite 2 weeks ago. Anaplasmosis screen positive Labs reviewed; has leukopenia, mild thrombocytopenia and mild transaminitis Confirmatory test awaited. Started on doxycycline; will provide 10-day course. PT OT pending. Patient had multiple falls prior to admission. (3) UTI (urinary tract infection): Plan: Urinalysis suggestive of infection Currently on Rocephin. We will follow-up on urine culture results (4) Elevated troponin I level: Plan: Mildly elevated high-sensitivity troponin; 38 on admission and down trended. EKG personally reviewed; normal sinus rhythm with nonspecific ST and T wave changes. Likely due to demand ischemia Plan Chronic conditions; Essential tremors. Significant tremors present. 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 Home propranolol and Valium ordered. History of hypertension. Hold antihypertensive as blood pressure is on lower side History of hyperlipidemia. Resume Lipitor JOSE on Chronic kidney disease stage III. Creatinine down trended with IV hydration. Avoid nephrotoxic agent. Deep venous thrombosis prophylaxis. We will place her on heparin subcutaneous. Monitor the platelets. Full code DVT prophylaxis heparin Dispolives with her with her son living 1 mile away. Had multiple falls prior to admission. PT OT assessment awaited. Time spent evaluating patient, direct bedside care, chart review, placing orders, interpretation of diagnostic studies, discussion with patient as well as other required patient management activities is 60 minutes Please note the above document was generated using voice recognition software. It may contain grammatical, syntax or spelling errors. Any formal questions or concerns about the content, text or information contained within the body of this dictation should be directly addressed to the provider for clarification Admission and Anticipated Discharge Date Admission Date: April 08, 2023 Subjective Patient seen and examined at bedside. She reports that her appetite has improved significantly. Also reports that her weakness has improved. Review of Systems Review of Systems: All systems reviewed & are unremarkable except as noted in Subjective Physical Exam Physical Exam: Constitutional: Awake, alert orient x3; has tremors Respiratory: normal respiratory effort, lungs clear to auscultation, no wheeze, rales, rhonchi. Normal insp/exp effort, no accessory muscle use Cardiovascular: RRR, no murmur, no edema Vessels: no JVD or carotid bruit Chest: normal inspection of chest Abdomen: normal bowel sounds, soft, nontender, no hepatosplenomegaly Musculoskeletal: no cyanosis or clubbing, extremities motor strength 5/5 Skin: no rashes, warm and dry normal turgor Neurologic: PERRL, EOMI, accommodation nl, no face palsy, no dysarthria CN's II- XI intact bilaterally and moves all extremities Psychiatric: A+Ox3, euthymic affect Results & Data Results & Data Vital Signs (Past 12 Hours) Vital Signs Temp Pulse Resp BP Pulse Ox O2 Del Method O2 Flow Rate 04/10/23 08:15 Room Air 04/10/23 10:05 94 Room Air 04/10/23 07:53 36.4 C L 57 L 16 126/65 94 Nasal Cannula 2 04/10/23 03:01 36.7 C 55 L 18 112/58 L 95 Nasal Cannula 2 04/09/23 23:40 Nasal Cannula 2 Laboratory Results Laboratory Results WBC 3.97 K/ul (4.8-10.8) L 04/09/23 05:25 RBC 3.83 M/uL (4.20-5.40) L 04/09/23 05:25 Hgb 11.4 g/dl (12.0-16.0) L 04/09/23 05:25 Hct 32.4 % (37.0-47.0) L 04/09/23 05:25 MCV 84.6 fL (80.0-100.0) 04/09/23 05:25 MCH 29.8 pg (25.0-34.0) 04/09/23 05:25 MCHC 35.2 g/dL (32.0-36.0) 04/09/23 05:25 RDW Std Deviation 44.9 fL (36.4-46.3) 04/09/23 05:25 RDW Coeff of Chad 14.5 % (11.5-14.5) 04/09/23 05:25 Plt Count 115 K/uL (130-400) L 04/09/23 05:25 MPV 13.5 fL (9.4-12.4) H 04/09/23 05:25 Immature Gran % (Auto) 0.5 % 04/08/23 19:28 Neut % (Auto) 62.3 % 04/08/23 19:28 Lymph % (Auto) 32.9 % 04/08/23 19:28 [place] % (Auto) 3.5 % 04/08/23 19:28 Eos % (Auto) 0.0 % 04/08/23 19:28 Baso % (Auto) 0.8 % 04/08/23 19:28 Neut # (Auto) 2.33 K/uL (1.40-6.50) 04/08/23 19:28 Lymph # (Auto) 1.23 K/uL (1.2-3.4) 04/08/23 19:28 [place] # (Auto) 0.13 K/uL (0.11-0.59) 04/08/23 19: Eos # (Auto) 0.00 K/uL (0-0.50) 04/08/23 19: Baso # (Auto) 0.03 K/uL (0-0.2) 04/08/23 19:28 Immature Gran # (Auto) 0.02 K/uL (0.01-0.20) 04/08/23 19:28 Neutrophils % (Manual) 84 % 04/09/23 05:25 Lymphocytes % (Manual) 9 % 04/09/23 05:25 Monocytes % (Manual) 8 % 04/09/23 05:25 Neutrophils # (Manual) 3.33 K/uL (1.40-6.50) 04/09/23 05:25 Total Absolute Neuts 3.33 K/uL (1.4-6.5) 04/09/23 05:25 Lymphocytes # (Manual) 0.36 K/uL (1.2-3.4) L 04/09/23 05:25 Total Abs Lymphocytes 0.36 K/uL (1.2-3.4) L 04/09/23 05:25 Monocytes # (Manual) 0.32 K/uL (0.11-0.59) 04/09/23 05:25 Toxic Vacuolation 1+ 04/09/23 05:25 Sodium 136 mmol/L (136-145) 04/09/23 05:25 Potassium 3.4 mmol/L (3.5-5.1) L 04/09/23 05:25 Chloride 102 mmol/L (98-107) 04/09/23 05:25 Carbon Dioxide 28 mmol/L (21-32) 04/09/23 05:25 Anion Gap 6 (3-11) 04/09/23 05:25 BUN 28 mg/dl (6-23) H 04/09/23 05:25 Creatinine 1.16 mg/dl (0.6-1.2) 04/09/23 05:25 Est Cr Clr Drug Dosing 34.4 ml/min 04/09/23 05:25 Est GFR ( Amer) 50.1 ml/min 04/09/23 05:25 Est GFR (Non-Af Amer) 43.2 ml/min 04/09/23 05:25 BUN/Creatinine Ratio 24.1 (10-20) H 04/09/23 05:25 Glucose 131 mg/dl (70-99(Fasting)) H 04/09/23 05:25 Lactate 1.4 mmol/L (0.4-2.0) 04/08/23 20:22 Calcium 7.9 mg/dl (8.6-10.3) L 04/09/23 05:25 Magnesium 1.9 mg/dl (1.7-2.4) 04/09/23 05:25 Total Bilirubin 0.8 mg/dl (0.2-1.0) 04/08/23 20:22 AST 66 U/L (13-39) H 04/08/23 20:22 ALT 53 U/L (7-52) H 04/08/23 20:22 Alkaline Phosphatase 96 U/L (34-104) 04/08/23 20:22 Total Creatine Kinase 101 U/L (26-192) 04/08/23 20:22 Troponin I High Sens 21.5 pg/ml (0-14) H 04/09/23 17:01 Total Protein 7.0 gm/dl (6.0-8.3) 04/08/23 20:22 Albumin 3.0 gm/dl (3.4-5.0) L 04/08/23 20:22 Globulin 4.0 gm/dl (2.5-4.0) 04/08/23 20:22 Albumin/Globulin Ratio 0.8 (0.9-2) L 04/08/23 20:22 Procalcitonin 0.40 ng/ml (0-0.5) 04/08/23 19:28 TSH 0.852 uIu/ml (0.300-4.500) 04/08/23 19:28 Urine Color Dark Yellow 04/08/23 22:04 Urine Appearance Cloudy (Clear) A 04/08/23 22:04 Urine pH 6.0 (4.5-7.5) 04/08/23 22:04 Ur Specific [place] 1.019 (1.000-1.030) 04/08/23 22:04 Urine Protein 1+ (Negative) H 04/08/23 22:04 Urine Glucose (UA) Negative (Negative) 04/08/23 22:04 Urine Ketones Negative (Negative) 04/08/23 22:04 Urine Blood Negative (Negative) 04/08/23 22:04 Urine Nitrite Negative (Negative) 04/08/23 22:04 Urine Bilirubin Negative (Negative) 04/08/23 22:04 Urine Urobilinogen Negative (Negative) 04/08/23 22:04 Ur Leukocyte Esterase 1+ (Negative) H 04/08/23 22:04 Urine WBC (Auto) 10-30 /hpf (0-5) H 04/08/23 22:04 Urine RBC (Auto) 5-10 /hpf (0-4) H 04/08/23 22:04 U Hyaline Cast (Auto) 10-30 /lpf (0-5) H 04/08/23 22:04 U Epithel Cells (Auto) >30 /lpf (0-5) H 04/08/23 22:04 Urine Bacteria (Auto) Negative (Negative) 04/08/23 22:04 Ur Renal Epithelial Cell 0-5 /lpf (0-5) 04/08/23 22:04 WBC Casts 1-5 /lpf (0) H 04/08/23 22:04 Urine Mucus Present (None Prsent) A 04/08/23 22:04 Anaplasma Smear See Comment A 04/08/23 19:28 SARS-CoV-2, RNA, NAAT NEGATIVE (NEGATIVE) 04/08/23 21:[address] 04/08/23 19:37 Exam(s): CT HEAD Without Contrast EXAM: CT Head Without Intravenous Contrast CLINICAL HISTORY: Reason for exam: fall. TECHNIQUE: Axial computed tomography images of the head/brain without intravenous contrast. CTDI is 36.55 mGy and DLP is 547.75 mGy-cm. Automated exposure control was utilized for the study. A dose lowering technique was utilized adhering to the principles of ALARA. COMPARISON: None FINDINGS: Brain: No acute infarct or hemorrhage identified. No extra-axial fluid collection. No mass effect or midline shift. Scattered areas of hypoattenuation in the supratentorial white matter likely represent chronic small vessel ischemic changes. 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 Ventricles and sulci: Prominence of the ventricles and sulci is likely secondary to cerebral volume loss. Bones: Normal. No bony lesion or acute fracture. Subcutaneous tissues: Normal. Sinuses: Small polyp versus mucous retention cyst in the right maxillary sinus. Mild mucosal thickening in the ethmoid air cells. Mastoid air cells: Normal. Orbits: Bilateral lens implants. Other: Atherosclerotic calcifications in the intracranial vasculature. IMPRESSION: 1. No acute intracranial abnormality. 2. Chronic small vessel ischemic changes and cerebral volume loss. Electronically signed by: Aryan Vidal M.D. 04/08/23 21:20 PM Chest X-Ray 04/08/23 19:42 XR chest 1V portable CLINICAL HISTORY: weakness COMPARISON STUDY: No previous studies for comparison. FINDINGS: Lung volumes are at the lower limits of normal. Lungs are clear. There is no pneumothorax or pleural effusion. Cardiac size is normal. Mediastinal contours are normal. There is no evidence for pulmonary edema. IMPRESSION: No acute cardiopulmonary findings. ACT 112: Negative or not required by law. Electronically signed by: Dashawn Milligan M.D. 04/09/2023 8:08 AM
[2023-04-10 11:32] LABS: Lyme Ab IgG w/WB Rflx Negative (Negative)
[2023-04-10 11:33] LABS: Lyme Ab IgM w/WB Rflx Positive (Negative)
[2023-04-10] MEDS: diazePAM 5 MG TABLET PO PRN (20:40)
[2023-04-10] MEDS: cefTRIAXone SODIUM 2,000 MG in DEXTROSE 5% 50 ML IV SCH (23:03)
[2023-04-11] MEDS: DOXYCYCLINE HYCLATE 100 MG in DEXTROSE 5% 100 ML IV SCH ×2 (01:11→12:51)
[2023-04-11] MEDS ORDERED: OLANZapine 10 MG/2.1 ML SDV IM STA ×3 (01:25→15:57)
[2023-04-11] MEDS ORDERED: OLANZapine 10 MG/2.1 ML SDV IM ONE (01:28)
[2023-04-11] MEDS: diazePAM 5 MG TABLET PO PRN (06:34)
[2023-04-11] MEDS: HEPARIN SOD 5,000 UNIT/0.5 ML VIAL SQ SCH ×2 (07:50→20:26)
[2023-04-11] MEDS: OMEGA-3 (PURIFIED FISH OIL) 1 GM CAP PO SCH (07:51)
[2023-04-11] MEDS: ASPIRIN 81 MG ECTAB PO SCH (07:51)
[2023-04-11] MEDS: PROPRANOLOL HCL 60 MG LA CAP PO SCH (07:51)
[2023-04-11] MEDS: CHOLECALCIFEROL 1,000 UNITS 25 MCG TAB PO SCH (07:51)
[2023-04-11] MEDS: ATORVASTATIN 20 MG TAB PO SCH (07:51)
[2023-04-11 08:14] LABS: BUN Creatinine Ratio 17.9 (10-20); Calcium 8.3 mg/dl (8.6-10.3); Creatinine Clr Calc Pharmacy 42.6 ml/min; Est GFR (African American) 63.7 ml/min; Potassium 3.1 mmol/L (3.5-5.1)
[2023-04-11 08:55] LABS: Hematocrit (blood only) 36.5 % (37.0-47.0); Hemoglobin 12.4 g/dl (12.0-16.0); Mean Corpuscular Hemoglobin 29.2 pg (25.0-34.0); Mean Corpuscular Volume 86.1 fL (80.0-100.0); Mean Platelet Volume 13.8 fL (9.4-12.4); Platelet Count 192 K/uL (130-400); RDW Coefficient of Variation 15.2 % (11.5-14.5); RDW Standard Deviation 47.7 fL (36.4-46.3); Red Blood Count 4.24 M/uL (4.20-5.40); White Blood Count 8.02 K/ul (4.8-10.8)
[2023-04-11 09:33] LABS: Basophils # (auto) 0.07 K/uL (0-0.2); Basophils % (auto) 0.9 %; Eosinophils # (auto) 0.14 K/uL (0-0.50); Eosinophils % (auto) 1.7 %; Immature Granulocytes # (auto) 0.03 K/uL (0.01-0.20); Immature Granulocytes % (auto) 0.4 %; Lymphocytes # (auto) 5.09 K/uL (1.2-3.4); Lymphocytes % (auto) 63.5 %; Monocytes # (auto) 0.38 K/uL (0.11-0.59); Monocytes % (auto) 4.7 %; Neutrophils # (auto) 2.31 K/uL (1.40-6.50); Neutrophils % (auto) 28.8 %
[2023-04-11] MEDS: POTASSIUM CHLORIDE / WTR 10 MEQ/100 ML PLCT IV SCH ×4 (10:15→13:51)
[2023-04-11] MEDS ORDERED: POTASSIUM CHLORIDE CRTAB 20 MEQ TABCR PO STA (10:51)
--- NOTE | 2023-04-11 12:22 | Hospitalist Progress Note ---
Date of Service April 11, 2023 Assessment & Plan (1) Weakness: (2) Lyme carditis: (3) Anaplasmosis: Plan: Patient is a 82-year-old female with past medical history of essential tremors, hypertension, hyperlipidemia which presents with generalized weakness. Had tick bite 2 weeks ago. 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 Improvement noted on today's lab work Lyme IgM positive Confirmatory test awaited. Telemetry had shown episode of bradycardia with 3-second pause. Patient also on propanolol for essential tremors. Continue on ceftriaxone for now for concern of Lyme carditis. We will hold propanolol. Continue on doxycycline for anaplasmosis (4) UTI (urinary tract infection): Plan: Urinalysis suggestive of infection Urine culture negative. (5) Elevated troponin I level: Plan: Mildly elevated high-sensitivity troponin; 38 on admission and down trended. EKG personally reviewed; normal sinus rhythm with nonspecific ST and T wave changes. Likely due to demand ischemia Plan Chronic conditions; Essential tremors. Significant tremors present. 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 Valium continued. Propanolol on hold due to bradycardia. History of hypertension. Hold antihypertensive as blood pressure is on lower side History of hyperlipidemia. Resume Lipitor JOSE on Chronic kidney disease stage III. Creatinine down trended with IV hydration. Avoid nephrotoxic agent. Deep venous thrombosis prophylaxis. We will place her on heparin subcutaneous. Monitor the platelets. Full code DVT prophylaxis heparin Dispohome with home PT OT. Discussed and updated her daughter at bedside. Time spent evaluating patient, direct bedside care, chart review, placing orders, interpretation of diagnostic studies, discussion with patient as well as other required patient management activities is 60 minutes Please note the above document was generated using voice recognition software. It may contain grammatical, syntax or spelling errors. Any formal questions or concerns about the content, text or information contained within the body of this dictation should be directly addressed to the provider for clarification Admission and Anticipated Discharge Date Admission Date: April 08, 2023 Subjective Patient seen and examined at bedside. She is sitting up at the side of the bed comfortably. Denies any fever, chest pain or shortness of breath or dizziness. Telemetry reviewed; patient had 3-second pause overnight. With episode of bradycardia. Review of Systems Review of Systems: All systems reviewed & are unremarkable except as noted in Subjective Physical Exam Physical Exam: Constitutional: Awake, alert orient x3; has tremors Respiratory: normal respiratory effort, lungs clear to auscultation, no wheeze, rales, rhonchi. Normal insp/exp effort, no accessory muscle use Cardiovascular: RRR, no murmur, no edema Vessels: no JVD or carotid bruit Chest: normal inspection of chest Abdomen: normal bowel sounds, soft, nontender, no hepatosplenomegaly Musculoskeletal: no cyanosis or clubbing, extremities motor strength 5/5 Skin: no rashes, warm and dry normal turgor Neurologic: PERRL, EOMI, accommodation nl, no face palsy, no dysarthria CN's II- XI intact bilaterally and moves all extremities Psychiatric: A+Ox3, euthymic affect Results & Data Results & Data Vital Signs (Past 12 Hours) Vital Signs Temp Pulse Resp BP Pulse Ox O2 Del Method 04/11/23 11:36 36.7 C 67 16 149/82 H 94 Room Air 04/11/23 08:30 Room Air 04/11/23 07:14 36.6 C 66 16 144/74 H 96 Room Air Laboratory Results Laboratory Results WBC 8.02 K/ul (4.8-10.8) 04/11/23 07:01 RBC 4.24 M/uL (4.20-5.40) 04/11/23 07:01 Hgb 12.4 g/dl (12.0-16.0) 04/11/23 07:01 Hct 36.5 % (37.0-47.0) L 04/11/23 07:01 MCV 86.1 fL (80.0-100.0) 04/11/23 07:01 MCH 29.2 pg (25.0-34.0) 04/11/23 07:01 MCHC 34.0 g/dL (32.0-36.0) 04/11/23 07:01 RDW Std Deviation 47.7 fL (36.4-46.3) H 04/11/23 07:01 RDW Coeff of Chad 15.2 % (11.5-14.5) H 04/11/23 07:01 Plt Count 192 K/uL (130-400) 04/11/23 07:01 MPV 13.8 fL (9.4-12.4) H 04/11/23 07:01 Immature Gran % (Auto) 0.4 % 04/11/23 07:01 Neut % (Auto) 28.8 % 04/11/23 07:01 Lymph % (Auto) 63.5 % 04/11/23 07:01 [place] % (Auto) 4.7 % 04/11/23 07:01 Eos % (Auto) 1.7 % 04/11/23 07:01 Baso % (Auto) 0.9 % 04/11/23 07:01 Neut # (Auto) 2.31 K/uL (1.40-6.50) 04/11/23 07:01 Lymph # (Auto) 5.09 K/uL (1.2-3.4) H 04/11/23 07:01 [place] # (Auto) 0.38 K/uL (0.11-0.59) 04/11/23 07:01 Eos # (Auto) 0.14 K/uL (0-0.50) 04/11/23 07:01 Baso # (Auto) 0.07 K/uL (0-0.2) 04/11/23 07:01 Immature Gran # (Auto) 0.03 K/uL (0.01-0.20) 04/11/23 07:01 Neutrophils % (Manual) 84 % 04/09/23 05:25 Lymphocytes % (Manual) 9 % 04/09/23 05:25 Monocytes % (Manual) 8 % 04/09/23 05:25 Neutrophils # (Manual) 3.33 K/uL (1.40-6.50) 04/09/23 05:25 Total Absolute Neuts 3.33 K/uL (1.4-6.5) 04/09/23 05:25 Lymphocytes # (Manual) 0.36 K/uL (1.2-3.4) L 04/09/23 05:25 Total Abs Lymphocytes 0.36 K/uL (1.2-3.4) L 04/09/23 05:25 Monocytes # (Manual) 0.32 K/uL (0.11-0.59) 04/09/23 05:25 Toxic Vacuolation 1+ 04/09/23 05:25 Peripher Smr Path Cons 04/08/23 19:28 Sodium 144 mmol/L (136-145) 04/11/23 07:01 Potassium 3.1 mmol/L (3.5-5.1) L 04/11/23 07:01 Chloride 110 mmol/L (98-107) H 04/11/23 07:01 Carbon Dioxide 27 mmol/L (21-32) 04/11/23 07:01 Anion Gap 7 (3-11) 04/11/23 07:01 BUN 17 mg/dl (6-23) 04/11/23 07:01 Creatinine 0.95 mg/dl (0.6-1.2) 04/11/23 07:01 Est Cr Clr Drug Dosing 42.6 ml/min 04/11/23 07:01 Est GFR ( Amer) 63.7 ml/min 04/11/23 07:01 Est GFR (Non-Af Amer) 55.0 ml/min 04/11/23 07:01 BUN/Creatinine Ratio 17.9 (10-20) 04/11/23 07:01 Glucose 85 mg/dl (70-99(Fasting)) 04/11/23 07:01 Lactate 1.4 mmol/L (0.4-2.0) 04/08/23 20:22 Calcium 8.3 mg/dl (8.6-10.3) L 04/11/23 07:01 Magnesium 1.9 mg/dl (1.7-2.4) 04/09/23 05:25 Total Bilirubin 0.8 mg/dl (0.2-1.0) 04/08/23 20:22 AST 66 U/L (13-39) H 04/08/23 20:22 ALT 53 U/L (7-52) H 04/08/23 20:22 Alkaline Phosphatase 96 U/L (34-104) 04/08/23 20:22 Total Creatine Kinase 101 U/L (26-192) 04/08/23 20:22 Troponin I High Sens 21.5 pg/ml (0-14) H 04/09/23 17:01 Total Protein 7.0 gm/dl (6.0-8.3) 04/08/23 20:22 Albumin 3.0 gm/dl (3.4-5.0) L 04/08/23 20:22 Globulin 4.0 gm/dl (2.5-4.0) 04/08/23 20: Albumin/Globulin Ratio 0.8 (0.9-2) L 04/08/23 20:22 Procalcitonin 0.40 ng/ml (0-0.5) 04/08/23 19:28 TSH 0.852 uIu/ml (0.300-4.500) 04/08/23 19:28 Urine Color Dark Yellow 04/08/23 22:04 Urine Appearance Cloudy (Clear) A 04/08/23 22:04 Urine pH 6.0 (4.5-7.5) 04/08/23 22:04 Ur Specific [place] 1.019 (1.000-1.030) 04/08/23 22:04 Urine Protein 1+ (Negative) H 04/08/23 22:04 Urine Glucose (UA) Negative (Negative) 04/08/23 22:04 Urine Ketones Negative (Negative) 04/08/23 22:04 Urine Blood Negative (Negative) 04/08/23 22:04 Urine Nitrite Negative (Negative) 04/08/23 22:04 Urine Bilirubin Negative (Negative) 04/08/23 22:04 Urine Urobilinogen Negative (Negative) 04/08/23 22:04 Ur Leukocyte Esterase 1+ (Negative) H 04/08/23 22:04 Urine WBC (Auto) 10-30 /hpf (0-5) H 04/08/23 22:04 Urine RBC (Auto) 5-10 /hpf (0-4) H 04/08/23 22:04 U Hyaline Cast (Auto) 10-30 /lpf (0-5) H 04/08/23 22:04 U Epithel Cells (Auto) >30 /lpf (0-5) H 04/08/23 22:04 Urine Bacteria (Auto) Negative (Negative) 04/08/23 22:04 Ur Renal Epithelial Cell 0-5 /lpf (0-5) 04/08/23 22:04 WBC Casts 1-5 /lpf (0) H 04/08/23 22:04 Urine Mucus Present (None Prsent) A 04/08/23 22:04 Anaplasma Smear See Comment A 04/08/23 19:28 Lyme Disease IgG Ab Negative (Negative) 04/10/23 10:22 Lyme Disease IgM Ab Positive (Negative) A 04/10/23 10:22 SARS-CoV-2, RNA, NAAT NEGATIVE (NEGATIVE) 04/08/23 21:[address] 04/08/23 19:37 Exam(s): CT HEAD Without Contrast EXAM: CT Head Without Intravenous Contrast CLINICAL HISTORY: Reason for exam: fall. TECHNIQUE: Axial computed tomography images of the head/brain without intravenous contrast. CTDI is 36.55 mGy and DLP is 547.75 mGy-cm. Automated exposure control was utilized for the study. A dose lowering technique was utilized adhering to the principles of ALARA. COMPARISON: None FINDINGS: Brain: No acute infarct or hemorrhage identified. No extra-axial fluid collection. No mass effect or midline shift. Scattered areas of hypoattenuation in the supratentorial white matter likely represent chronic small vessel ischemic changes. 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 Ventricles and sulci: Prominence of the ventricles and sulci is likely secondary to cerebral volume loss. Bones: Normal. No bony lesion or acute fracture. Subcutaneous tissues: Normal. Sinuses: Small polyp versus mucous retention cyst in the right maxillary sinus. Mild mucosal thickening in the ethmoid air cells. Mastoid air cells: Normal. Orbits: Bilateral lens implants. Other: Atherosclerotic calcifications in the intracranial vasculature. IMPRESSION: 1. No acute intracranial abnormality. 2. Chronic small vessel ischemic changes and cerebral volume loss. Electronically signed by: Aryan Vidal M.D. 04/08/23 21:20 PM Chest X-Ray 04/08/23 19:42 XR chest 1V portable CLINICAL HISTORY: weakness COMPARISON STUDY: No previous studies for comparison. FINDINGS: Lung volumes are at the lower limits of normal. Lungs are clear. There is no pneumothorax or pleural effusion. Cardiac size is normal. Mediastinal contours are normal. There is no evidence for pulmonary edema. IMPRESSION: No acute cardiopulmonary findings. ACT 112: Negative or not required by law. Electronically signed by: Dashawn Milligan M.D. 04/09/2023 8:08 AM
[2023-04-11] MEDS: D5W AND NSS 1,000 ML IV SCH ×2 (13:17→16:42)
[2023-04-11] MEDS: diazePAM 5 MG TABLET PO SCH ×2 (13:35→20:26)
[2023-04-11 14:14] LABS: Anaplasmosis Smear(Rpt to DOH) Pos for Anaplasma
--- NOTE | 2023-04-11 15:57 | Cardiology Consultation ---
Date of Consultation April 11, 2023 Assessment & Plan (1) Anaplasmosis: (2) Lyme carditis: A mild, flat elevation in the troponin is observed. Patient with preliminary Lyme screen positive, Western blot pending. Anaplasmosis DNA confirmation also pending. Would appear that the findings on telemetry suggest Lyme carditis, however the patient describes no subjective cardiac symptoms. Artifact is also a significant possibility with the patient having a tremor baseline and having difficulty keeping her telemetry wires in place otherwise. Agree with holding her propranolol for now. Patient with multiple requests with regards to being discharged, and I counseled her and her that I felt that ongoing monitoring on telemetry and treatment IV antibiotics was indicated. Case discussed with Dr. Murry. History of Present Illness Attending Physician: Pb Murry MD History of Present Illness Sherie Salguero is an 82 year old female seen in cardiology consultation per the request of Dr Murry for the evaluation of bradycardia. Patient with longstanding history of essential tremor and has been on extended release propranolol 120 mg daily for 20 years. Based on her cognitive status at the time my interview with her, I question if there is also a degree of superimposed dementia. The patient was admitted via the emergency department on 04/09/2023 with generalized weakness, and chills. She reportedly had a tick bite more than 2 weeks ago and as an outpatient and anaplasmosis screen has been positive. While hospitalized, anaplasmosis screen positive, and also the IgM bands of her Lyme screen is also positive. She has a appropriate medication including doxycycline intravenously and IV ceftriaxone. This morning at 821 the patient was noted to have 2 pause episodes the first of which was just very 2 seconds in duration, and the second was of 3.4 seconds in duration. Patient was actually being supervised on one-to-one supervision due to agitation at that time and no associated symptoms were observed. Telemetry otherwise notable for artifact related to her tremor, and the patient has been pulling on her monitor wires. Allergies Allergy/AdvReac Type Severity Reaction Status Date / Time No Known Allergies Allergy Verified 04/08/23 22:37 Home Medications Medication Instructions Recorded Confirmed Type Fish Oil 1,000 mg PO DAILY 04/08/23 04/09/23 History PreserVision AREDS-2 PO DAILY 04/08/23 History Vitamin D3 25 mcg PO DAILY 04/08/23 04/09/23 History atorvastatin 20 mg tablet 20 mg PO DAILY 04/08/23 04/09/23 History diazepam 5 mg tablet 5 mg PO TID PRN Tremor(S) 04/08/23 04/09/23 History hydrochlorothiazide 25 mg tablet 25 mg PO DAILY 04/08/23 04/09/23 History multivitamin 1 tab PO DAILY 04/08/23 04/09/23 History nifedipine 90 mg tablet,extended 90 mg PO DAILY 04/08/23 04/09/23 History release 24 hr propranolol 120 mg capsule,24 120 mg PO DAILY 04/08/23 04/09/23 History hr,extended release aspirin 81 mg capsule,delayed 81 mg PO DAILY 04/09/23 04/09/23 History release Patient History Social History Smoking Status: Never smoker Second Hand Exposure: No; Do You Dip or Chew Tobacco: No; Hx Alcohol Use: No Hx Substance Use: No Preferred Language: Dutch Communication Ability: Effective [employer] Required: No Beliefs That Will Affect Care: None Current Living Situation: Spouse Current Living Situation Comment: Lives with Other Information That Helps Us Care for You: No Feels Safe at Home: Yes Safety Concerns: Feels Safe At This Time Assistive Devices: Walker Review of Systems Review of Systems: Unobtainable due to cognitive status Physical Exam Constitutional: WD/WN, vitals as above Respiratory: normal respiratory effort, lungs clear to auscultation Cardiovascular: RRR, no murmur, no edema Gastrointestinal (Abdomen): normal bowel sounds, soft, nontender, no hepatosplenomegaly Skin: no rashes, warm and dry Neurologic: Generalized tremor noted, no focal deficits, decreased cognitive status with regards to repeating questions. Results & Data Vital Signs (Past 12 Hours) Vital Signs Temp Pulse Resp BP Pulse Ox O2 Del Method 04/11/23 11:36 36.7 C 67 16 149/82 H 94 Room Air 04/11/23 08:30 Room Air 04/11/23 07:14 36.6 C 66 16 144/74 H 96 Room Air Laboratory Results CBC 04/11/23 Range/Units 07:01 WBC 8.02 (4.8-10.8) K/ul RBC 4.24 (4.20-5.40) M/uL Hgb 12.4 (12.0-16.0) g/dl Hct 36.5 L (37.0-47.0) % Plt Count 192 (130-400) K/uL Neut # (Auto) 2.31 (1.40-6.50) K/uL Lymph # (Auto) 5.09 H (1.2-3.4) K/uL [place] # (Auto) 0.38 (0.11-0.59) K/uL Eos # (Auto) 0.14 (0-0.50) K/uL Baso # (Auto) 0.07 (0-0.2) K/uL Comprehensive Metabolic Panel 04/11/23 Range/Units 07:01 Sodium 144 (136-145) mmol/L Potassium 3.1 L (3.5-5.1) mmol/L Chloride 110 H (98-107) mmol/L Carbon Dioxide 27 (21-32) mmol/L BUN 17 (6-23) mg/dl Creatinine 0.95 (0.6-1.2) mg/dl Glucose 85 (70-99(Fasting)) mg/dl Calcium 8.3 L (8.6-10.3) mg/dl
--- NOTE | 2023-04-11 16:00 | Electrocardiogram Report ---
Test Reason : Blood Pressure : / mmHG Vent. Rate : 065 BPM Atrial Rate : 065 BPM P-R Int : 176 ms QRS Dur : 090 ms QT Int : 430 ms P-R-T Axes : 094 020 -03 degrees QTc Int : 447 ms Normal sinus rhythm Nonspecific T wave abnormality Abnormal ECG When compared with ECG of 08-APR-2023 19:35, No significant change was found Confirmed by Valentin Mcclure ([id number]) on 04/11/2023 3:59:35 PM Referred By: REFERRED SELF Confirmed By:Anthony Mcclure
[2023-04-11] MEDS: cefTRIAXone SODIUM 2,000 MG in DEXTROSE 5% 50 ML IV SCH (22:51)
[2023-04-12] MEDS: DOXYCYCLINE HYCLATE 100 MG in DEXTROSE 5% 100 ML IV SCH ×2 (00:38→12:15)
[2023-04-12] MEDS ORDERED: ACETAMINOPHEN 325 MG TAB PO PRN (02:11)
[2023-04-12 08:03] LABS: Hematocrit (blood only) 34.9 % (37.0-47.0); Hemoglobin 11.8 g/dl (12.0-16.0); Mean Corpuscular Hemoglobin 29.3 pg (25.0-34.0); Mean Corpuscular Hgb Conc 33.8 g/dL (32.0-36.0); Mean Corpuscular Volume 86.6 fL (80.0-100.0); Mean Platelet Volume 12.4 fL (9.4-12.4); Platelet Count 241 K/uL (130-400); RDW Coefficient of Variation 15.3 % (11.5-14.5); RDW Standard Deviation 48.5 fL (36.4-46.3); Red Blood Count 4.03 M/uL (4.20-5.40); White Blood Count 7.01 K/ul (4.8-10.8)
[2023-04-12 08:21] LABS: Calcium 8.6 mg/dl (8.6-10.3); Creatinine Clr Calc Pharmacy 43.8 ml/min; Est GFR (African American) 65.4 ml/min; Est GFR (Non-African American) 56.4 ml/min
[2023-04-12] MEDS: diazePAM 5 MG TABLET PO SCH ×2 (08:28→14:53)
[2023-04-12] MEDS: ATORVASTATIN 20 MG TAB PO SCH (08:28)
[2023-04-12] MEDS: HEPARIN SOD 5,000 UNIT/0.5 ML VIAL SQ SCH (08:29)
[2023-04-12] MEDS: CHOLECALCIFEROL 1,000 UNITS 25 MCG TAB PO SCH (08:29)
[2023-04-12] MEDS: ASPIRIN 81 MG ECTAB PO SCH (08:29)
[2023-04-12] MEDS: OMEGA-3 (PURIFIED FISH OIL) 1 GM CAP PO SCH (08:29)
[2023-04-12 08:47] LABS: Basophils # (auto) 0.06 K/uL (0-0.2); Basophils % (auto) 0.9 %; Eosinophils # (auto) 0.19 K/uL (0-0.50); Eosinophils % (auto) 2.7 %; Immature Granulocytes # (auto) 0.01 K/uL (0.01-0.20); Immature Granulocytes % (auto) 0.1 %; Lymphocytes # (auto) 3.84 K/uL (1.2-3.4); Lymphocytes % (auto) 54.8 %; Monocytes # (auto) 0.36 K/uL (0.11-0.59); Monocytes % (auto) 5.1 %; Neutrophils # (auto) 2.55 K/uL (1.40-6.50); Neutrophils % (auto) 36.4 %
--- NOTE | 2023-04-12 14:32 | Discharge Summary ---
Date of Service April 12, 2023 Admission HPI Per Admitting Provider This is an 82-year-old female with past medical history significant for hypertension, hyperlipidemia, chronic kidney disease stage III, essential tremor, presents with weakness. The patient has very bad tremors. She has difficulty speaking with her tremors. Today she says she was feeling weak slid down from the chair and she was having also shaking chills, the reason she came to the ER. She says she had a tick bite more than 2 weeks ago and anaplasmosis screen came back positive. The patient denies any fevers. No cough. The patient says she can eat okay, but looks like she was not able to swallow comfortably water in the ER. Denies any headache. Vision is okay. No runny nose, no chest pain, no shortness of breath, no nausea, no abdominal pain. Normal bowel and bladder movements. She says she ambulates okay at home Currently, hemodynamics are okay. Admission Exam Per Admitting Provider GENERAL: The patient is old and frail, not in acute distress. VITAL SIGNS: Temperature 36.9, pulse 93, respiratory rate 22, blood pressure 129/63, oxygen 93% on room air. HEENT: Pupils equal, round and reactive to light. Oral mucosa dry. NECK: No JVD, no neck masses. CARDIOVASCULAR: S1 and S2 heard. Regular rate and rhythm. No murmur, no gallop. RESPIRATORY SYSTEM: Normal AP diameter. No accessory muscle use. No wheezing, no crackles. ABDOMEN: Soft, bowel sounds present, nontender, no distention. CENTRAL NERVOUS SYSTEM: Alert and oriented. Difficult to speak from tremors, but insight is good. Obeys simple commands. Moves extremities. EXTREMITIES: No edema, no erythema seen. Principal Diagnosis (1) Weakness: (2) Lyme carditis: (3) Anaplasmosis: Discharge Exam Constitutional: Awake, alert orient x3; has tremors Respiratory: normal respiratory effort, lungs clear to auscultation, no wheeze, rales, rhonchi. Normal insp/exp effort, no accessory muscle use Cardiovascular: RRR, no murmur, no edema Vessels: no JVD or carotid bruit Chest: normal inspection of chest Abdomen: normal bowel sounds, soft, nontender, no hepatosplenomegaly Musculoskeletal: no cyanosis or clubbing, extremities motor strength 5/5 Skin: no rashes, warm and dry normal turgor Neurologic: PERRL, EOMI, accommodation nl, no face palsy, no dysarthria CN's II- XI intact bilaterally and moves all extremities Psychiatric: A+Ox3, euthymic affect Discharge Data Allergies Allergy/AdvReac Type Severity Reaction Status Date / Time No Known Allergies Allergy Verified 04/08/23 22:37 Consultations 04/08/23 22:34 ED Decision to Admit Stat 04/11/23 08:31 Consult Cardiology Routine Ordered Studies 04/08/23 19:37 CT head/brain wo con Stat Hospital Course (1) Weakness: (2) Lyme carditis: (3) Anaplasmosis: (4) UTI (urinary tract infection): (5) Elevated troponin I level: (6) Pancytopenia: Plan Patient is a 82-year-old female with past medical history of essential tremors, hypertension, hyperlipidemia which presents with generalized weakness. Had tick bite 2 weeks ago. Anaplasmosis screen positive Labs reviewed; had leukopenia, mild thrombocytopenia and mild transaminitis on admission. Improved through the hospitalization Lyme IgM positive Confirmatory test awaited. During the hospitalization, patient was started on IV ceftriaxone and doxycycline. On telemetry, patient was found to bradycardic with an episode of 3-second pause. Cardiac consultation was done. Patient's propanolol was kept on hold. Continue treatment with IV ceftriaxone was done for suspicion of Lyme carditis Telemetry monitoring did not reveal any more pauses. PT OT evaluation was done; recommended subacute rehab. However, patient's family wanted to take her home. Patient was discharged home on doxycycline for 14 more days. Patient to follow-up with the primary care doctor. Her propanolol was kept on hold. Patient was asked to discuss with her primary care doctor Regarding alternative medication for essential tremors. Please note the above document was generated using voice recognition software. It may contain grammatical, syntax or spelling errors. Any formal questions or concerns about the content, text or information contained within the body of this dictation should be directly addressed to the provider for clarification Total Time Total Time Spent Total Time Spent (In Minutes): 45 Total Time Includes: Examination of the Patient, Discharge Planning, Medication Reconciliation, Communication With Other Providers and Other Discharge Plan Discharge Items Patient Disposition: Home - Self-Care Reason For Visit: WEAKNESS Activity: Resume your previous activity Non-emergency contact: Primary Care Provider Call non-emergency contact if: you have any medication questions and your symptoms worsen Follow-up/Referrals: Pavel Quiros MD [Primary Care Provider] - (Date & Time 04/19/2023 3:20 PM Provider Pavel Quiros MD Department Family Practice [facility] ) Diet: Regular Addtl Attending Provider Instructions: You were admitted to the hospital with weakness. You are found to have anaplasmosis. Your Lyme test came back positive as well. However confirmatory test for both of those are still pending. You are prescribed doxycycline to be taken twice daily for 14 days. Your heart rate was found to be on the lower side during the hospitalization. It can be due to Lyme or propranolol can contribute to it as well. Please follow-up with your primary care doctor. Please seek alternatives for propanolol for your essential tremors. An appointment has been set up with your primary care doctor Pending Studies at Discharge: Yes (Confirmatory test for Lyme IgM and anaplasmosis) Stand-Alone Forms: [facility] Medications and DC Order Prescriptions: New doxycycline hyclate 100 mg capsule 100 mg PO BID 14 Days Qty: 28 0RF Continued atorvastatin 20 mg tablet 20 mg PO DAILY hydrochlorothiazide 25 mg tablet 25 mg PO DAILY Rx Instructions: 1 tab daily and take an extra tablet 2 days wk in the afternoon diazepam 5 mg tablet 5 mg PO TID PRN (Reason: Tremor(S)) Rx Instructions: q8hrs multivitamin bottle 1 tab PO DAILY Fish Oil 1,000 mg PO DAILY Vitamin D3 bottle 25 mcg PO DAILY PreserVision AREDS-2 bottle PO DAILY nifedipine 90 mg tablet extended release 24hr 90 mg PO DAILY aspirin 81 mg Capsule,Delayed Release(Dr/Ec) 81 mg PO DAILY Held propranolol 120 mg capsule,extended release 24 hr 120 mg PO DAILY Hold Instructions: Resume on 04/18/23. Till you see your primary care doctor. Discharge Orders: Discharge Order (Routine); Ordered 04/12/23 Ordered By: Pb Will/Other Patient Handouts: Anaplasmosis, Understanding Bradycardia, ED Lyme Disease, ED Tick Bite, Abx Tx Admission Data Admit Date/Time: 04/08/23 23:29 Attending Provider: Pb Murry Admit Provider: Diaz Poole Primary Care Provider: Pavel Quiros Other Providers: Diaz Poole ; Jennifer Reich ; Patrick Santos ; Elmer Browne ; Scot Abreu ; Erlin Boss ; Jeffery Jeffries ; Cristel Do ; Humera Stokes ; Jennifer Infante ; Ayden Montgomery ; Gurdeep Dewey ; [facility] Other Interventions: Discharge Summary Assessment (RN) Last Done: 04/12/23 12:53
--- NOTE | 2023-04-12 15:11 | Cardiology Progress Note ---
Date of Service April 12, 2023 Assessment & Plan (1) Anaplasmosis: (2) Acute Lyme disease: Plan: - Patient with two brief asymptomatic pauses on telemetry yesterday. Difficult to discern if this is related to her positive Lyme test, with positive IgM antibody, negative IgG antibody, confirmatory Western blot pending. Telemetry also noted to be technically limited yesterday due to her resting tremor and she was manipulating her leads. She was on one-to-one supervision at the time of the pause episodes, with no witnessed problems or reported symptoms. -Patient has also tested positive for anaplasmosis. -Echocardiogram reveals no pericardial effusion, LVEF of 55 to 60%, trace mitral regurgitation. -In the long-term, patient likely will require propranolol which she takes for essential tremor, but would continue to hold until reassessed in outpatient primary care follow-up, and as long as she is free of symptoms suggestive of bradycardia, can likely resume it. -Recommend completing course of antibiotics necessary for Lyme/anaplasmosis. Admission and Anticipated Discharge Date Admission Date: April 08, 2023 Subjective Patient resting comfortably at the time of my assessment, sinus bradycardia in the 50s noted during sleep, heart rates higher while awake. No recurrent pauses. Results & Data Vital Signs (Past 12 Hours) Vital Signs Temp Pulse Pulse Resp BP BP Pulse Ox 04/12/23 12:53 36.8 C 55 L 18 146/76 H 92/48 L 94 04/12/23 12:26 36.8 C 55 L 18 146/76 H 94 04/12/23 08:18 36.8 C 75 16 144/86 H 93 04/12/23 06:28 61 O2 Del Method 04/12/23 12:53 04/12/23 12:26 Room Air 04/12/23 08:18 Room Air 04/12/23 06:28 Laboratory Results Temp Pulse Resp BP Pulse Ox O2 Del Method O2 Flow Rate 36.8 C 55 L 18 92/48 L 94 Room Air 2 04/12/23 12:53 04/12/23 12:53 04/12/23 12:53 04/12/23 12:53 04/12/23 12:53 04/12/23 12:26 04/10/23 07:53
[2023-04-13 08:29] LABS: 18KDIGG Band NON-REACTIVE; 23KDIGG Band NON-REACTIVE; 23KDIGM Band NON-REACTIVE; 28KDIGG Band NON-REACTIVE; 30KDIGG Band NON-REACTIVE; 39KDIGG Band REACTIVE; 39KDIGM Band NON-REACTIVE; 41KDIGG Band REACTIVE; 41KDIGM Band REACTIVE; 45KDIGG Band NON-REACTIVE; 58KDIGG Band REACTIVE; 66KDIGG Band NON-REACTIVE; 93KDIGG Band NON-REACTIVE; Lyme Antibodies, WB IgG NEGATIVE (NEGATIVE); Lyme Antibodies, WB IgM NEGATIVE (NEGATIVE)
== END 2023-04-12 15:00 | disposition home or self-care (01) | DRG 868 ==
LOC: ED 19:21 → 2N 23:29